=== PATIENT | female | born 1980 | race Hispanic/Latino ===

== ENCOUNTER 2022-09-24 18:42 | Emergency (ER) | payer SELFPAY ==
--- OUTSIDE RECORDS SUMMARY | 2022-09-24 18:49 | XMS REPORT | Continuity of Care Document ---
:1980 Author Organization [facility] t Address [address] [place] [address] Care Team Providers Name Role Phone MANISHA BIANCHI Primary Care Physician Unavailable TINA FABIAN Attending Clinician Unavailable Tina Fabian MD Attending Clinician Doctor Unassigned, [place] Attending Clinician Unavailable Se Ivory DO Attending Clinician Bridgette Roque Attending Clinician Unavailable Yifan Richard MD Attending Clinician GREGG MONTALVO Attending Clinician Unavailable Elio Singh MD Attending Clinician TINA FABIAN Admitting Clinician Unavailable Payers Payer Name Policy Type Policy Number Effective Date Expiration Date S [facility] [id number] 2020 00:00:00 Problems Condition Condition Condition Status Onset Resolution Last Treating Co mments Source Name Details Category Date Date Treatment Clinician Date Obesity Obesity Disease Active 2018-0 Univers (BMI (BMI 5-21 ity of 30-39.9) 30-39.9) 00:00: [address] Branch Subclinica Subclinica Disease Active 2017- U nivers l l 8-02 ity of hypothyroi hypothyroi [place] [facility] Primary Primary Disease Active [facility] hypothyroi hypothyroi 3-29 it y of dism dism 00:00: [address] Primary Primary Disease Active Univers hypothyroi hypothyroi 3-29 it y of dism dism 00:00: [place] 00 Medical Branch Low IGF-1 Low IGF-1 Disease Active Uni vers level level 3-29 ity of 00:00: [place] [facility] Low IGF-1 Low IGF-1 Disease Active Uni vers level level 3-29 ity of 00:00: [place] 00 Medical Branch Elevated Elevated Disease Active Unive rs blood blood 3-22 ity of pressure pressure 00:00: [place] reading reading 00 Medical without without Branch diagnosis diagnosis of of hypertensi hypertensi on on Depo-Prove Depo-Prove Disease Active U nivers ra ra 2-23 [place] of contracept contracept [place] k[place]ore status kishore status 00 [facility] PCOS PCOS Disease Active 2014-08 [facility] (polycysti (polycysti 0-21 [place] y of c ovarian c ovarian 00:[place] syndrome[place] syndrome[place] 00 [facility] PCOS PCOS Disease Active 2014-08 Univers (polycysti (polycysti 0-21 it y of c ovarian c ovarian 00:[place] syndrome[place] syndrome[place] 00 [facility] Elevated Elevated Disease Active Unive rs liver liver 9 ity of enzymes enzymes 00:00: [place] [facility] Abnormal Abnormal Disease Active Unive rs thyroid thyroid 05-27 ity of blood test blood test [place] [facility] HLD HLD Disease Active Univers (hyperlipi (hyperlipi 9 it y of demia) demia) 00:00: [place] [facility] 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 U nivers unspecifie unspecifie 6-23 it y of d type d type 00:00: [place] diabetes diabetes 00 Medica l mellitus mellitus Branch with with ophthalmic ophthalmic manifestat manifestat ions, ions, uncontroll uncontroll ed(250.52) ed(250.52) 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 00:00: [place] 00 Medical Branch Callus of Callus of Disease Active Uni vers foot foot 5-13 ity of 00:00: [place] [facility] Diabetes Diabetes Disease Active Unive rs mellitus mellitus 5-12 ity of due to due to 00:00: [place] underlying underlying 00 Me dical condition condition 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 Neuropathy Neuropathy Disease Active U nivers - ity of 00:00: [place] 00 Medical Branch Amenorrhea Amenorrhea Disease Active U nivers 01-07 ity of 00:00: [place] 00 Medical Branch Hirsutism Hirsutism Disease Active Uni vers 01-07 ity of 00:00: [place] 00 Medical Branch Allergies, Adverse Reactions, Alerts Allergy Allergy Status Severity Reaction(s) Onset Inactive Treating Comm ents Source Name Type Date Date Clinician Penicill Propensi Active Swelling Took pcn, U nivers ins ty to 10-21 broke out ity of adverse 00:00: in hives [place] reaction 00 and felt Medica l s throat Branch closing up PENICILL Drug Active Swelling Univer s INS Class 2- ity of 00:00: [place] 00 Medical Branch Social History Social Habit Start Date Stop Date Quantity Comments Source Exposure to Not sure [facility] SARS-CoV-2 [facility] (event) Branch Alcohol intake 2021-01-16 2021-01-16 Current [facility] 00:00:00 00:00:00 non-drinker of [facility] [place] [facility] alcohol [place] (finding) Tobacco use and 2021-01-16 2021-01-16 Never used Universit y of exposure 00:00:00 00:00:00 [facility] Sex Assigned At [birth year] Universit y of 00:00:00 00:00:00 [facility] Smoking Status Start Date Stop Date Source Never smoker [facility] Medications Ordered Filled Start Stop Current Ordering Indication Dosage Frequency Signature Comments Components Source Medication Medication Date Date Medication? Clinician (SIG) Name Name icosapent Yes Take by Unive rs ethyl - mouth. ity of (VASCEPA) 1 14:12: [place] gram 53 Medical capsule Branch dapaglifloz Yes Take by Uni vers in-metformi - mouth. ity of n (XIGDUO 14:12: [place] XR) 53 Medical 10-1,000 mg Branch TBph dulaglutide Yes inject Univ ers (TRULICITY) 5-21 under the ity of 1.5 mg/0.5 14:12: skin. [place] [id number] Medical Branch Fenofibrate 2020-0 Yes Take by Uni vers 160 mg 5-21 mouth. ity of tablet 14:12: [address] Branch icosapent 0 Yes Take by Unive rs ethyl 5-21 mouth. ity of (VASCEPA) 1 14:12: [place] [address] Medical capsule Branch dapaglifloz 0 Yes Take by Uni vers in-metformi 5-21 mouth. ity of n (XIGDUO 14:12: [place] XR) 53 Medical 10-1,000 mg Branch TBph dulaglutide 2020-0 Yes inject Univ ers (TRULICITY) 5-21 under the ity of 1.5 mg/0.5 14:12: skin. [address] Branch Fenofibrate 0 Yes Take by Uni vers 160 mg 5-21 mouth. ity of tablet 14:12: [address] icosapent Yes Take by Unive rs ethyl 5-21 mouth. ity of (VASCEPA) 1 14:12: [place] [address] Medical capsule Branch dapaglifloz 0 Yes Take by Uni vers in-metformi 5-21 mouth. ity of n (XIGDUO 14:12: [place] XR) 53 Medical 10-1,000 mg Branch TBph dulaglutide 2020-0 Yes inject Univ ers (TRULICITY) 5-21 under the ity of 1.5 mg/0.5 14:12: skin. [address] Branch Fenofibrate 0 Yes Take by Uni vers 160 mg 5-21 mouth. ity of tablet 14:12: [address] Branch metroNIDAZO 2020-0 Yes [id number] 500mg Take 1 Univers LE 500 mg 5-22 tablet by ity o f tablet 00:00: mouth [place] 00 every 12 Medical (twelve) Branch hours. metroNIDAZO 2020-0 Yes [id number] 500mg Take 1 Univers LE 500 mg 5-22 tablet by ity o f tablet 00:00: mouth [place] 00 every 12 Medical (twelve) Branch hours. metroNIDAZO 2020-0 Yes [id number] 500mg Take 1 Univers LE 500 mg 5-22 tablet by ity o f tablet 00:00: mouth [place] 00 every 12 Medical (twelve) Branch hours. metroNIDAZO 2020-0 Yes [id number] 500mg Take 1 Univers LE 500 mg 5-22 tablet by ity o f tablet 00:00: mouth [place] 00 every 12 Medical (twelve) Branch hours. metroNIDAZO 2020-0 Yes [id number] 500mg Take 1 Univers LE 500 mg 5-22 tablet by ity o f tablet 00:00: mouth [place] 00 every 12 Medical (twelve) Branch hours. metroNIDAZO 2020-0 Yes [id number] 500mg Take 1 Univers LE 500 mg 5-22 tablet by ity o f tablet 00:00: mouth [place] 00 every 12 Medical (twelve) Branch hours. metroNIDAZO 2020-0 Yes [id number] 500mg Take 1 Univers LE 500 mg 5-22 tablet by ity o f tablet 00:00: mouth [place] 00 every 12 Medical (twelve) Branch hours. metroNIDAZO 2020-0 Yes [id number] 500mg Take 1 Univers LE 500 mg 5-22 tablet by ity o f tablet 00:00: mouth [place] 00 every 12 Medical (twelve) Branch hours. metroNIDAZO 2020-0 Yes [id number] 500mg Take 1 Univers LE 500 mg 5-22 tablet by ity o f tablet 00:00: mouth [place] 00 every 12 Medical (twelve) Branch hours. metroNIDAZO 2020-0 Yes [id number] 500mg Take 1 Univers LE 500 mg 5-22 tablet by ity o f tablet 00:00: mouth [place] 00 every 12 Medical (twelve) Branch hours. metroNIDAZO 2020-0 2021- No [id number] 500mg Take 1 Univers LE 500 mg 5-22 05-21 tablet by ity of tablet 00:00: 00:00 mouth [place] 00 :00 every 12 Medical (twelve) Branch hours. metroNIDAZO 2020-0 2021- No [id number] 500mg Take 1 Univers LE 500 mg 5-22 05-21 tablet by ity of tablet 00:00: 00:00 mouth [place] 00 :00 every 12 Medical (twelve) Branch hours. fluconazole 2020-0 2020- No [id number] 150mg Take 1 Univers (DIFLUCAN) 5-22 05-23 tablet by ity of 150 mg 00:00: 04:59 [place] tablet 00 :00 now for 1 Medical dose. Branch icosapent 2020-0 Yes Take by Unive rs ethyl 5-21 mouth. ity of (VASCEPA) 1 16:17: [place] gram 36 Medical capsule Branch dapaglifloz 2020-0 Yes Take by Uni vers in-metformi 5-21 mouth. ity of n (XIGDUO 16:17: [place] XR) 36 Medical 10-1,000 mg Branch TBph dulaglutide 2020-0 Yes inject Univ ers (TRULICITY) 5-21 under the ity of 1.5 mg/0.5 16:17: skin. [place] mL PnIj 36 Medical Branch Fenofibrate 2020-0 Yes Take by Uni vers 160 mg 5-21 mouth. ity of tablet 16:17: [place] 36 Medical Branch icosapent 2020-0 Yes Take by Unive rs ethyl 5-21 mouth. ity of (VASCEPA) 1 16:17: [place] gram 36 Medical capsule Branch dapaglifloz 2020-0 Yes Take by Uni vers in-metformi 5-21 mouth. ity of n (XIGDUO 16:17: [place] XR) 36 Medical 10-1,000 mg Branch TBph dulaglutide 2020-0 Yes inject Univ ers (TRULICITY) 5-21 under the ity of 1.5 mg/0.5 16:17: skin. [place] mL PnIj 36 Medical Branch Fenofibrate 2020-0 Yes Take by Uni vers 160 mg 5-21 mouth. ity of tablet 16:17: [place] [address] Medical Branch icosapent 2020-0 Yes Take by Unive rs ethyl 5-21 mouth. ity of (VASCEPA) 1 16:17: [place] gram 36 Medical capsule Branch dapaglifloz 2020-0 Yes Take by Uni vers in-metformi 5-21 mouth. ity of n (XIGDUO 16:17: [place] XR) 36 Medical 10-1,000 mg Branch TBph dulaglutide 2020-0 Yes inject Univ ers (TRULICITY) 5-21 under the ity of 1.5 mg/0.5 16:17: skin. [place] mL PnIj 36 Medical Branch Fenofibrate 2020-0 Yes Take by Uni vers 160 mg 5-21 mouth. ity of tablet 16:17: [place] [address] Medical Branch icosapent 2020-0 Yes Take by Unive rs ethyl 5-21 mouth. ity of (VASCEPA) 1 16:17: [place] gram 36 Medical capsule Branch dapaglifloz 2020-0 Yes Take by Uni vers in-metformi 5-21 mouth. ity of n (XIGDUO 16:17: [place] XR) 36 Medical 10-1,000 mg Branch TBph dulaglutide 2020-0 Yes inject Univ ers (TRULICITY) 5-21 under the ity of 1.5 mg/0.5 16:17: skin. [place] mL PnIj 36 Medical Branch Fenofibrate 2020-0 Yes Take by Uni vers 160 mg 5-21 mouth. ity of tablet 16:17: [place] [facility] icosapent 2020-0 Yes Take by Unive rs ethyl 5-21 mouth. ity of (VASCEPA) 1 16:17: [place] gram 36 Medical capsule Branch dapaglifloz 2020-0 Yes Take by Uni vers in-metformi 5-21 mouth. ity of n (XIGDUO 16:17: [place] XR) 36 Medical 10-1,000 mg Branch TBph dulaglutide 2020-0 Yes inject Univ ers (TRULICITY) 5-21 under the ity of 1.5 mg/0.5 16:17: skin. [place] mL PnIj 36 Medical Branch Fenofibrate 2020-0 Yes Take by Uni vers 160 mg 5-21 mouth. ity of tablet 16:17: [place] [address] Medical Branch icosapent 2020-0 Yes Take by Unive rs ethyl 5-21 mouth. ity of (VASCEPA) 1 16:17: [place] gram 36 Medical capsule Branch dapaglifloz 2020-0 Yes Take by Uni vers in-metformi 5-21 mouth. ity of n (XIGDUO 16:17: [place] XR) 36 Medical 10-1,000 mg Branch TBph dulaglutide 2020-0 Yes inject Univ ers (TRULICITY) 5-21 under the ity of 1.5 mg/0.5 16:17: skin. [place] mL PnIj 36 Medical Branch Fenofibrate 2020-0 Yes Take by Uni vers 160 mg 5-21 mouth. ity of tablet 16:17: [place] [address] Medical Branch icosapent 2020-0 Yes Take by Unive rs ethyl 5-21 mouth. ity of (VASCEPA) 1 16:17: [place] gram 36 Medical capsule Branch dapaglifloz 2020-0 Yes Take by Uni vers in-metformi 5-21 mouth. ity of n (XIGDUO 16:17: [place] XR) 36 Medical 10-1,000 mg Branch TBph dulaglutide 2020-0 Yes inject Univ ers (TRULICITY) 5-21 under the ity of 1.5 mg/0.5 16:17: skin. [place] mL PnIj 36 Medical Branch Fenofibrate 2020-0 Yes Take by Uni vers 160 mg 5-21 mouth. ity of tablet 16:17: [place] 36 Medical Branch icosapent 2020-0 Yes Take by Unive rs ethyl 5-21 mouth. ity of (VASCEPA) 1 16:17: [place] gram 36 Medical capsule Branch dapaglifloz 2020-0 Yes Take by Uni vers in-metformi 5-21 mouth. ity of n (XIGDUO 16:17: [place] XR) 36 Medical 10-1,000 mg Branch TBph dulaglutide 2020-0 Yes inject Univ ers (TRULICITY) 5-21 under the ity of 1.5 mg/0.5 16:17: skin. [place] PnIj 36 Medical Branch Fenofibrate 2020-0 Yes Take by Uni vers 160 mg 5-21 mouth. ity of tablet 16:17: [place] 36 Medical Branch icosapent 2020-0 Yes Take by Unive rs ethyl 5-21 mouth. ity of (VASCEPA) 1 16:17: [place] gram 36 Medical capsule Branch dapaglifloz 2020-0 Yes Take by Uni vers in-metformi 5-21 mouth. ity of n (XIGDUO 16:17: [place] XR) 36 Medical 10-1,000 mg Branch TBph dulaglutide 2020-0 Yes inject Univ ers (TRULICITY) 5-21 under the ity of 1.5 mg/0.5 16:17: skin. [place] mL PnIj 36 Medical Branch Fenofibrate 2020-0 Yes Take by Uni vers 160 mg 5-21 mouth. ity of tablet 16:17: [place] 36 Medical Branch icosapent 2020-0 Yes Take by Unive rs ethyl 5-21 mouth. ity of (VASCEPA) 1 16:17: [place] gram 36 Medical capsule Branch dapaglifloz 2020-0 Yes Take by Uni vers in-metformi 5-21 mouth. ity of n (XIGDUO 16:17: [place] XR) 36 Medical 10-1,000 mg Branch TBph dulaglutide 2020-0 Yes inject Univ ers (TRULICITY) 5-21 under the ity of 1.5 mg/0.5 16:17: skin. [place] mL PnIj 36 Medical Branch Fenofibrate 2020-0 Yes Take by Uni vers 160 mg 5-21 mouth. ity of tablet 16:17: [place] [address] Medical Branch icosapent 2020-0 Yes Take by Unive rs ethyl 5-21 mouth. ity of (VASCEPA) 1 16:17: [place] gram 36 Medical capsule Branch dapaglifloz 2020-0 Yes Take by Uni vers in-metformi 5-21 mouth. ity of n (XIGDUO 16:17: [place] XR) 36 Medical 10-1,000 mg Branch TBph dulaglutide 2020-0 Yes inject Univ ers (TRULICITY) 5-21 under the ity of 1.5 mg/0.5 16:17: skin. [facility] PnIj 36 Medical Branch Fenofibrate 2020-0 Yes Take by Uni vers 160 mg 5-21 mouth. ity of tablet 16:17: [place] [address] Medical Branch icosapent 2020-0 Yes Take by Unive rs ethyl 5-21 mouth. ity of (VASCEPA) 1 16:17: [place] gram 36 Medical capsule Branch dapaglifloz 2020-0 Yes Take by Uni vers in-metformi 5-21 mouth. ity of n (XIGDUO 16:17: [place] XR) 36 Medical 10-1,000 mg Branch TBph dulaglutide 2020-0 Yes inject Univ ers (TRULICITY) 5-21 under the ity of 1.5 mg/0.5 16:17: skin. [facility] PnIj 36 Medical Branch Fenofibrate 2020-0 Yes Take by Uni vers 160 mg 5-21 mouth. ity of tablet 16:17: [place] [address] Medical Branch icosapent 2020-0 Yes Take by Unive rs ethyl 5-21 mouth. ity of (VASCEPA) 1 16:17: [place] gram 36 Medical capsule Branch dapaglifloz 2020-0 Yes Take by Uni vers in-metformi 5-21 mouth. ity of n (XIGDUO 16:17: [place] XR) 36 Medical 10-1,000 mg Branch TBph dulaglutide 2020-0 Yes inject Univ ers (TRULICITY) 5-21 under the ity of 1.5 mg/0.5 16:17: skin. [facility] PnIj 36 Medical Branch Fenofibrate 2020-0 Yes Take by Uni vers 160 mg 5-21 mouth. ity of tablet 16:17: [place] 36 Medical Branch atorvastati 2020-0 Yes 20mg Take 1 Univ ers n 20 mg 3-23 tablet by ity of tablet 00:00: mouth at [place] [address] bedtime. Medical Branch atorvastati 2020-0 Yes 20mg Take 1 Univ ers n 20 mg 3-23 tablet by ity of tablet 00:00: mouth at [place] [address] bedtime. Medical Branch atorvastati 2020-0 Yes 20mg Take 1 Univ ers n 20 mg 3-23 tablet by ity of tablet 00:00: mouth at [place] [address] bedtime. Medical Branch atorvastati 2020-0 Yes 20mg Take 1 Univ ers n 20 mg 3-23 tablet by ity of tablet 00:00: mouth at [place] [address] bedtime. Medical Branch atorvastati 2020-0 Yes 20mg Take 1 Univ ers n 20 mg 3-23 tablet by ity of tablet 00:00: mouth at [place] [address] bedtime. Medical Branch atorvastati 2020-0 Yes 20mg Take 1 Univ ers n 20 mg 3-23 tablet by ity of tablet 00:00: mouth at [place] [address] bedtime. Medical Branch atorvastati 2020-0 Yes 20mg Take 1 Univ ers n 20 mg 3-23 tablet by ity of tablet 00:00: mouth at [place] [address] bedtime. Medical Branch atorvastati 2020-0 Yes 20mg Take 1 Univ ers n 20 mg 3-23 tablet by ity of tablet 00:00: mouth at [place] [address] bedtime. Medical Branch atorvastati 2020-0 Yes 20mg Take 1 Univ ers n 20 mg 3-23 tablet by ity of tablet 00:00: mouth at [place] [address] bedtime. Medical Branch atorvastati 2020-0 Yes 20mg Take 1 Univ ers n 20 mg 3-23 tablet by ity of tablet 00:00: mouth at [place] [address] bedtime. Medical Branch atorvastati 2020-0 Yes 20mg Take 1 Univ ers n 20 mg 3-23 tablet by ity of tablet 00:00: mouth at [place] [address] bedtime. Medical Branch atorvastati 2020-0 Yes 20mg Take 1 Univ ers n 20 mg 3-23 tablet by ity of tablet 00:00: mouth at [place] [address] bedtime. Medical Branch atorvastati 2020-0 Yes 20mg Take 1 Univ ers n 20 mg 3-23 tablet by ity of tablet 00:00: mouth at [place] [address] bedtime. Medical Branch atorvastati 2020-0 Yes 20mg Take 1 Univ ers n 20 mg 3-23 tablet by ity of tablet 00:00: mouth at [place] [address] bedtime. Medical Branch atorvastati 2020-0 Yes 20mg Take 1 Univ ers n 20 mg 3-23 tablet by ity of tablet 00:00: mouth at [place] [address] bedtime. Medical Branch atorvastati 2020-0 Yes 20mg Take 1 Univ ers n 20 mg 3-23 tablet by ity of tablet 00:00: mouth at [place] [address] bedtime. Medical Branch atorvastati 2020-0 Yes 20mg Take 1 Univ ers n 20 mg 3-23 tablet by ity of tablet 00:00: mouth at [place] [address] bedtime. Medical Branch atorvastati 2020-0 Yes 20mg Take 1 Univ ers n 20 mg 3-23 tablet by ity of tablet 00:00: mouth at [place] [address] bedtime. Medical Branch atorvastati 2020-0 Yes 20mg Take 1 Univ ers n 20 mg 3-23 tablet by ity of tablet 00:00: mouth at [place] [address] bedtime. Medical Branch atorvastati 2020-0 Yes 20mg Take 1 Univ ers n 20 mg 3-23 tablet by ity of tablet 00:00: mouth at [place] [address] bedtime. Medical Branch atorvastati 2019-0 Yes 20mg Take 1 Univ ers n 20 mg 7-11 tablet by ity of tablet 00:00: mouth at [place] [address] bedtime. Medical Branch atorvastati 2019-0 Yes 20mg Take 1 Univ ers n 20 mg 7-11 tablet by ity of tablet 00:00: mouth at [place] [address] bedtime. Medical Branch atorvastati 2019-0 Yes 20mg Take 1 Univ ers n 20 mg 7-11 tablet by ity of tablet 00:00: mouth at [place] [address] bedtime. Medical Branch atorvastati 2019-0 Yes 20mg Take 1 Univ ers n 20 mg 7-11 tablet by ity of tablet 00:00: mouth at [place] [address] bedtime. Medical Branch atorvastati 2019-0 Yes 20mg Take 1 Univ ers n 20 mg 7-11 tablet by ity of tablet 00:00: mouth at [place] 00 [facility]. [facility] No [facility] Take 1 Uni vers n 20 mg 03-08 tablet by ity of tablet 00:00: 00:00 mouth at [place] 00 :00 [facility]. [facility]- No 20mg Take 1 Uni vers n 20 mg 03-08 tablet by ity of tablet 00:00: 00:00 mouth at [place] 00 :00 [facility]time. [facility]- No 20mg Take 1 Uni vers n 20 mg 03-08 tablet by ity of tablet 00:00: 00:00 mouth at [place] 00 :00 bedtime. [facility] 0 Yes [id number] Use as Un telma VERIO strip 6-17 directed, ity of 00:00: TID, DX: [place] E11.9 [facility] 0 Yes [id number] Use as Un telma VERIO strip 6-17 directed, ity of 00:00: TID, DX: [place] E11.9 [facility] 0 Yes [id number] Use as Un telma VERIO strip 6-17 directed, ity of 00:00: TID, DX: [place] E11.9 [facility] 0 Yes [id number] Use as Un telma VERIO strip 6-17 directed, ity of 00:00: TID, DX: [place] E11.9 [facility] 0 Yes [id number] Use as Un telma VERIO strip 6-17 directed, ity of 00:00: TID, DX: [place] E11.9 [facility] 0 Yes [id number] Use as Un telma VERIO strip 6-17 directed, ity of 00:00: TID, DX: [place] E11.9 [facility] 0 Yes [id number] Use as Un telma VERIO strip 6-17 directed, ity of 00:00: TID, DX: [place] E11.9 [facility] 0 Yes [id number] Use as Un telma VERIO strip 6-17 directed, ity of 00:00: TID, DX: [place] 00 E11.9 [facility] 0 Yes [id number] Use as Un telma VERIO strip 6-17 directed, ity of 00:00: TID, DX: [place] E11.9 Medical [facility] 0 Yes [id number] Use as Un telma VERIO strip 6-17 directed, ity of 00:00: TID, DX: [place] E11.9 Medical [facility] 0 Yes [id number] Use as Un telma VERIO strip 6-17 directed, ity of 00:00: TID, DX: [place] E11.9 Medical [facility] Yes [id number] Use as Un telma VERIO strip 6-17 directed, ity of 00:00: TID, DX: [place] E11.9 Medical [facility] Yes [id number] Use as Un telma VERIO strip 6-17 directed, ity of 00:00: TID, DX: [place] E11.9 Medical Branch [facility] Yes [id number] Use as Un telma VERIO strip 6-17 directed, ity of 00:00: TID, DX: [place] E11.9 Medical [facility] Yes [id number] Use as Un telma VERIO strip 6-17 directed, ity of 00:00: TID, DX: [place] E11.9 [facility] Yes [id number] Use as Un telma VERIO strip 6-17 directed, ity of 00:00: TID, DX: [place] E11.9 Medical [facility] Yes [id number] Use as Un telma VERIO strip 6-17 directed, ity of 00:00: TID, DX: [place] E11.9 Medical [facility] 0 Yes [id number] Use as Un telma VERIO strip 6-17 directed, ity of 00:00: TID, DX: [place] E11.9 Medical [facility] 0 Yes [id number] Use as Un telma VERIO strip 6-17 directed, ity of 00:00: TID, DX: [place] E11.9 Medical [facility] 0 Yes [id number] Use as Un telma VERIO strip 6-17 directed, ity of 00:00: TID, DX: [place] E11.9 Medical Branch [facility] Yes [id number] Use as Un telma VERIO strip 6-17 directed, ity of 00:00: TID, DX: [place] E11.9 Medical Branch [facility] Yes [id number] Use as Un telma VERIO strip 6-17 directed, ity of 00:00: TID, DX: [place] E11.9 Medical Branch [facility] Yes [id number] Use as Un telma VERIO strip 6-17 directed, ity of 00:00: TID, DX: [place] E11.9 Medical Branch [facility] Yes [id number] Use as Un telma VERIO strip 6-17 directed, ity of 00:00: TID, DX: [place] E11.9 Medical Branch [facility] Yes [id number] Use as Un telma VERIO strip 6-17 directed, ity of 00:00: TID, DX: [place] E11.9 Medical Branch insulin Yes [id number] 15U inject 15 Univers lispro 6-14 Units ity of protamine-i 00:00: under the [place] nsulin 00 skin 2 Medical lispro (two) Branch (HUMALOG times MIX 50-50 daily KWIKPEN) before 100 unit/mL breakfast (50-50) and injection dinner. Insulin Yes [id number] Use twice [facility] [employer], 6-14 daily ity of Disposable, 00:00: [place] (JAK PEN 00 Medical NEEDLE) 32 Branch gauge x 5/32" Ndle insulin Yes [id number] 15U inject 15 Univers lispro 6-14 Units ity of protamine-i 00:00: under the [place] nsulin 00 skin 2 Medical lispro (two) Branch (HUMALOG times MIX 50-50 daily KWIKPEN) before 100 unit/mL breakfast (50-50) and injection dinner. Insulin Yes [id number] Use twice Univers [employer], 6-14 daily ity of Disposable, 00:00: [place] (JAK PEN 00 Medical NEEDLE) 32 Branch gauge x 5/32" Ndle insulin Yes [id number] 15U inject 15 Univers lispro 6-14 Units ity of protamine-i 00:00: under the [place] nsulin 00 skin 2 Medical lispro (two) Branch (HUMALOG times MIX 50-50 daily KWIKPEN) before 100 unit/mL breakfast (50-50) and injection dinner. Insulin Yes [id number] Use twice [facility] [employer], 6-14 daily ity of Disposable, 00:00: [place] (JAK PEN 00 Medical NEEDLE) 32 Branch gauge x 5/32" Ndle insulin Yes [id number] 15U inject 15 Univers lispro 6-14 Units ity of protamine-i 00:00: under the [place] nsulin skin 2 Medical lispro (two) Branch (HUMALOG times MIX 50-50 daily KWIKPEN) before 100 unit/mL breakfast (50-50) and injection dinner. Insulin Yes [id number] Use twice [facility] [employer], 6-14 daily ity of Disposable, 00:00: [place] (JAK PEN 00 Medical NEEDLE) 32 Branch gauge x 5/32" Ndle insulin Yes [id number] 15U inject 15 [facility] lispro 6-14 Units ity of protamine-i 00:00: under the [place] nsulin skin 2 Medical lispro (two) Branch (HUMALOG times MIX 50-50 daily KWIKPEN) before 100 unit/mL breakfast (50-50) and injection dinner. Insulin Yes [id number] Use twice Univers [employer], 6-14 daily ity of Disposable, 00:00: [place] (JAK PEN 00 Medical NEEDLE) 32 Branch gauge x 5/32" Ndle insulin Yes [id number] 15U inject 15 Univers lispro 6-14 Units ity of protamine-i 00:00: [place] nsulin skin 2 Medical lispro (two) Branch (HUMALOG times MIX 50-50 daily KWIKPEN) before 100 unit/mL breakfast (50-50) and injection dinner. Insulin Yes [id number] Use twice [facility] [employer], 6-14 daily ity of Disposable, 00:00: [place] (JAK PEN 00 Medical NEEDLE) 32 Branch gauge x 5/32" Ndle insulin Yes [id number] 15U inject 15 Univers lispro 6-14 Units ity of protamine-i 00:00: [place] nsulin 00 skin 2 Medical lispro (two) Branch (HUMALOG times MIX 50-50 daily KWIKPEN) before 100 unit/mL breakfast (50-50) and injection dinner. Insulin Yes [id number] Use twice [facility] [employer], 6-14 daily ity of Disposable, 00:00: [place] (JAK PEN 00 Medical NEEDLE) 32 Branch gauge x 5/32" Ndle insulin Yes [id number] 15U inject 15 Univers lispro 6-14 Units ity of protamine-i 00:00: [place] nsulin skin 2 Medical lispro (two) Branch (HUMALOG times MIX 50-50 daily KWIKPEN) before 100 unit/mL breakfast (50-50) and injection dinner. Insulin Yes [id number] Use twice [facility] [employer], 6-14 daily ity of Disposable, 00:00: [place] (JAK PEN 00 Medical NEEDLE) 32 Branch gauge x 5/32" Ndle insulin Yes [id number] 15U inject 15 [facility] lispro 6-14 Units ity of protamine-i 00:00: [place] nsulin skin 2 Medical lispro (two) Branch (HUMALOG times MIX 50-50 daily KWIKPEN) before 100 unit/mL breakfast (50-50) and injection dinner. Insulin Yes [id number] Use twice [facility] [employer], 6-14 daily ity of Disposable, 00:00: [place] (JAK PEN 00 Medical NEEDLE) 32 Branch gauge x 5/32" Ndle insulin Yes [id number] 15U inject 15 [facility] lispro 6-14 Units ity of protamine-i 00:00: [place] nsulin skin 2 Medical lispro (two) Branch (HUMALOG times MIX 50-50 daily KWIKPEN) before 100 unit/mL breakfast (50-50) and injection dinner. Insulin Yes [id number] Use twice [facility] [employer], 6-14 daily ity of Disposable, 00:00: [place] (JAK PEN 00 Medical NEEDLE) 32 Branch gauge x 5/32" Ndle insulin Yes [id number] 15U inject 15 [facility] lispro 6-14 Units ity of protamine-i 00:00: [place] nsulin 00 skin 2 Medical lispro (two) Branch (HUMALOG times MIX 50-50 daily KWIKPEN) before 100 unit/mL breakfast (50-50) and injection dinner. Insulin Yes [id number] Use twice [facility] [employer], 6-14 daily ity of Disposable, 00:00: [place] (JAK PEN 00 Medical NEEDLE) 32 Branch gauge x 5/32" Ndle insulin 20190 Yes [id number] 15U inject 15 [facility] lispro 6-14 Units ity of protamine-i 00:00: [place] nsulin 00 skin 2 Medical lispro (two) Branch (HUMALOG times MIX 50-50 daily KWIKPEN) before 100 unit/mL breakfast (50-50) and injection dinner. Insulin Yes [id number] Use twice [facility] [employer], 6-14 daily ity of Disposable, 00:00: [place] (JAK PEN 00 Medical NEEDLE) 32 Branch gauge x 5/32" Ndle insulin Yes [id number] 15U inject 15 [facility] lispro 6-14 Units ity of protamine-i 00:00: [place] the [place] nsulin 00 skin 2 Medical lispro (two) Branch (HUMALOG times MIX 50-50 daily KWIKPEN) before 100 unit/mL breakfast (50-50) and injection dinner. Insulin Yes [id number] Use twice [facility] [employer], 6-14 daily ity of Disposable, 00:00: [place] (JAK PEN 00 Medical NEEDLE) 32 Branch gauge x 5/32" Ndle insulin 0 Yes [id number] 15U inject 15 [facility] lispro 6-14 Units ity of protamine-i 00:00: [place] nsulin 00 skin 2 Medical lispro (two) Branch (HUMALOG times MIX 50-50 daily KWIKPEN) before 100 unit/mL breakfast (50-50) and injection dinner. Insulin Yes [id number] Use twice [facility] [employer], 6-14 daily ity of Disposable, 00:00: [place] (JAK PEN 00 Medical NEEDLE) 32 Branch gauge x 5/32" Ndle insulin 0 Yes [id number] 15U inject 15 [facility] lispro 6-14 Units ity of protamine-i 00:00: [place] the [place] nsulin 00 skin 2 Medical lispro (two) Branch (HUMALOG times MIX 50-50 daily KWIKPEN) before 100 unit/mL breakfast (50-50) and injection dinner. Insulin Yes [id number] Use twice [facility] [employer], 6-14 daily ity of Disposable, 00:00: [place] (JAK PEN 00 Medical NEEDLE) 32 Branch gauge x 5/32" Ndle insulin Yes [id number] 15U inject 15 [facility] lispro 6-14 Units ity of protamine-i 00:00: [place] nsulin 00 skin 2 Medical lispro (two) Branch (HUMALOG times MIX 50-50 daily KWIKPEN) before 100 unit/mL breakfast (50-50) and injection dinner. Insulin Yes [id number] Use twice [facility] [employer], 6-14 daily ity of Disposable, 00:00: [place] (JAK PEN 00 Medical NEEDLE) 32 Branch gauge x 5/32" Ndle insulin Yes [id number] 15U inject 15 [facility] lispro 6-14 Units ity of protamine-i 00:00: under [place] nsulin skin 2 Medical lispro (two) Branch (HUMALOG times MIX 50-50 daily KWIKPEN) before 100 unit/mL breakfast (50-50) and injection dinner. Insulin Yes [id number] Use twice [facility] [employer], 6-14 daily ity of Disposable, 00:00: [place] (JAK PEN 00 Medical NEEDLE) 32 Branch gauge x 5/32" Ndle insulin Yes [id number] 15U inject 15 [facility] lispro 6-14 Units ity of protamine-i 00:00: [place] nsulin skin 2 Medical lispro (two) Branch (HUMALOG times MIX 50-50 daily KWIKPEN) before 100 unit/mL breakfast (50-50) and injection dinner. Insulin Yes [id number] Use twice [facility] [employer], 6-14 daily ity of Disposable, 00:00: [place] (JAK PEN 00 Medical NEEDLE) 32 Branch gauge x 5/32" Ndle insulin Yes [id number] 15U inject 15 [facility] lispro 6-14 Units ity of protamine-i 00:00: [place] nsulin 00 skin 2 Medical lispro (two) Branch (HUMALOG times MIX 50-50 daily KWIKPEN) before 100 unit/mL breakfast (50-50) and injection dinner. Insulin Yes [id number] Use twice [facility] [employer], 6-14 daily ity of Disposable, 00:00: [place] (JAK PEN 00 Medical NEEDLE) 32 Branch gauge x 5/32" Ndle insulin Yes [id number] 15U inject 15 [facility] lispro 6-14 Units ity of protamine-i 00:00: under the [place] nsulin 00 skin 2 Medical lispro (two) Branch (HUMALOG times MIX 50-50 daily KWIKPEN) before 100 unit/mL breakfast (50-50) and injection dinner. Insulin Yes [id number] Use twice [facility] [employer], 6-14 daily ity of Disposable, 00:00: [place] (JAK PEN 00 Medical NEEDLE) 32 Branch gauge x 5/32" Ndle insulin Yes [id number] 15U inject 15 [facility] lispro 6-14 Units ity of protamine-i 00:00: under the [place] nsulin 00 skin 2 Medical lispro (two) Branch (HUMALOG times MIX 50-50 daily KWIKPEN) before 100 unit/mL breakfast (50-50) and injection dinner. Insulin Yes [id number] Use twice [facility] [employer], 6-14 daily ity of Disposable, 00:00: [place] (JAK PEN 00 Medical NEEDLE) 32 Branch gauge x 5/32" Ndle insulin Yes [id number] 15U inject 15 [facility] lispro 6-14 Units ity of protamine-i 00:00: under the [place] nsulin 00 skin 2 Medical lispro (two) Branch (HUMALOG times MIX 50-50 daily KWIKPEN) before 100 unit/mL breakfast (50-50) and injection dinner. Insulin Yes [id number] Use twice [facility] [employer], 6-14 daily ity of Disposable, 00:00: [place] (JAK PEN 00 Medical NEEDLE) 32 Branch gauge x 5/32" Ndle insulin Yes [id number] 15U inject 15 [facility] lispro 6-14 Units ity of protamine-i 00:00: [place] the [place] nsulin 00 skin 2 Medical lispro (two) Branch (HUMALOG times MIX 50-50 daily KWIKPEN) before 100 unit/mL breakfast (50-50) and injection dinner. Insulin Yes [id number] Use twice [facility] [employer], 6-14 daily ity of Disposable, 00:00: [place] (JAK PEN 00 Medical NEEDLE) 32 Branch gauge x 5/32" Ndle insulin 2018-0 Yes [id number] 15U inject 15 [facility] lispro 6-14 Units ity of protamine-i 00:00: under the [place] nsulin 00 skin 2 Medical lispro (two) Branch (HUMALOG times MIX 50-50 daily KWIKPEN) before 100 unit/mL breakfast (50-50) and injection dinner. Insulin Yes [id number] Use twice [facility] [employer] [place], 6-14 daily ity of Disposable, 00:00: [place] (JAK PEN 00 Medical NEEDLE) 32 Branch gauge x 5/32" Ndle insulin Yes [id number] 15U inject 15 [facility] lispro 6-14 Units ity of protamine-i 00:00: [place] the [place] nsulin 00 skin 2 Medical lispro (two) Branch (HUMALOG times MIX 50-50 daily KWIKPEN) before 100 unit/mL breakfast (50-50) and injection dinner. Insulin Yes [id number] Use twice [facility] [employer] [place], 6-14 daily ity of Disposable, 00:00: [place] (JAK PEN 00 Medical NEEDLE) 32 Branch gauge x 5/32" Ndle metformin 2017-0 Yes 1000mg Take 2 Univ ers ER 500 mg 4-16 tablets by ity of 24 hr 00:00: mouth 2 [place] tablet 00 (two) Medical times Branch daily. lisinopril 2018-0 Yes 2.5mg Take 1 Univ ers 2.5 mg 4-16 tablet by ity of tablet 00:00: mouth [place] 00 daily. Medical Branch metformin 2018-0 Yes 1000mg Take 2 Univ ers ER 500 mg 4-16 tablets by ity of 24 hr 00:00: mouth 2 [place] tablet 00 (two) Medical times Branch daily. lisinopril 2018-0 Yes 2.5mg Take 1 Univ ers 2.5 mg 4-16 tablet by ity of tablet 00:00: mouth [place] 00 daily. Medical Branch metformin 2018-0 Yes 1000mg Take 2 Univ ers ER 500 mg 4-16 tablets by ity of 24 hr 00:00: mouth 2 [place] tablet 00 (two) Medical times Branch daily. lisinopril 2018-0 Yes 2.5mg Take 1 Univ ers 2.5 mg 4-16 tablet by ity of tablet 00:00: mouth [place] 00 daily. Medical Branch metformin 2018-0 Yes 1000mg Take 2 Univ ers ER 500 mg 4-16 tablets by ity of 24 hr 00:00: mouth 2 [place] tablet 00 (two) Medical times Branch daily. lisinopril 2018-0 Yes 2.5mg Take 1 Univ ers 2.5 mg 4-16 tablet by ity of tablet 00:00: mouth [place] 00 daily. Medical Branch metformin 2018-0 Yes 1000mg Take 2 Univ ers ER 500 mg 4-16 tablets by ity of 24 hr 00:00: mouth 2 [place] tablet 00 (two) Medical times Branch daily. lisinopril 2018-0 Yes 2.5mg Take 1 Univ ers 2.5 mg 4-16 tablet by ity of tablet 00:00: mouth [place] 00 daily. Medical Branch metformin 2018-0 Yes 1000mg Take 2 Univ ers ER 500 mg 4-16 tablets by ity of 24 hr 00:00: mouth 2 [place] tablet 00 (two) Medical times Branch daily. lisinopril 2018-0 Yes 2.5mg Take 1 Univ ers 2.5 mg 4-16 tablet by ity of tablet 00:00: mouth [place] 00 daily. Medical Branch metformin 2018-0 Yes 1000mg Take 2 Univ ers ER 500 mg 4-16 tablets by ity of 24 hr 00:00: mouth 2 [place] tablet 00 (two) Medical times Branch daily. lisinopril 2018-0 Yes 2.5mg Take 1 Univ ers 2.5 mg 4-16 tablet by ity of tablet 00:00: mouth [place] 00 daily. Medical Branch metformin 2018-0 Yes 1000mg Take 2 Univ ers ER 500 mg 4-16 tablets by ity of 24 hr 00:00: mouth 2 [place] tablet 00 (two) Medical times Branch daily. lisinopril 2018-0 Yes 2.5mg Take 1 Univ ers 2.5 mg 4-16 tablet by ity of tablet 00:00: mouth [place] 00 daily. Medical Branch metformin 2018-0 Yes 1000mg Take 2 Univ ers ER 500 mg 4-16 tablets by ity of 24 hr 00:00: mouth 2 [place] tablet 00 (two) Medical times Branch daily. lisinopril 2018-0 Yes 2.5mg Take 1 Univ ers 2.5 mg 4-16 tablet by ity of tablet 00:00: mouth [place] 00 daily. Medical Branch metformin 2018-0 Yes 1000mg Take 2 Univ ers ER 500 mg 4-16 tablets by ity of 24 hr 00:00: mouth 2 [place] tablet 00 (two) Medical times Branch daily. lisinopril 2018-0 Yes 2.5mg Take 1 Univ ers 2.5 mg 4-16 tablet by ity of tablet 00:00: mouth [place] 00 daily. Medical Branch metformin 2018-0 Yes 1000mg Take 2 Univ ers ER 500 mg 4-16 tablets by ity of 24 hr 00:00: mouth 2 [place] tablet 00 (two) Medical times Branch daily. lisinopril 2018-0 Yes 2.5mg Take 1 Univ ers 2.5 mg 4-16 tablet by ity of tablet 00:00: mouth [place] 00 daily. Medical Branch metformin 2018-0 Yes 1000mg Take 2 Univ ers ER 500 mg 4-16 tablets by ity of 24 hr 00:00: mouth 2 [place] tablet 00 (two) Medical times Branch daily. lisinopril 2018-0 Yes 2.5mg Take 1 Univ ers 2.5 mg 4-16 tablet by ity of tablet 00:00: mouth [place] 00 daily. Medical Branch metformin 2018-0 Yes 1000mg Take 2 Univ ers ER 500 mg 4-16 tablets by ity of 24 hr 00:00: mouth 2 [place] tablet 00 (two) Medical times Branch daily. lisinopril 2018-0 Yes 2.5mg Take 1 Univ ers 2.5 mg 4-16 tablet by ity of tablet 00:00: mouth [place] 00 daily. Medical Branch metformin 2018-0 Yes 1000mg Take 2 Univ ers ER 500 mg 4-16 tablets by ity of 24 hr 00:00: mouth 2 [place] tablet 00 (two) Medical times Branch daily. lisinopril 2018-0 Yes 2.5mg Take 1 Univ ers 2.5 mg 4-16 tablet by ity of tablet 00:00: mouth [place] 00 daily. Medical Branch metformin 2018-0 Yes 1000mg Take 2 Univ ers ER 500 mg 4-16 tablets by ity of 24 hr 00:00: mouth 2 [place] tablet 00 (two) Medical times Branch daily. lisinopril 2018-0 Yes 2.5mg Take 1 Univ ers 2.5 mg 4-16 tablet by ity of tablet 00:00: mouth [place] 00 daily. Medical Branch metformin 2018-0 Yes 1000mg Take 2 Univ ers ER 500 mg 4-16 tablets by ity of 24 hr 00:00: mouth 2 [place] tablet 00 (two) Medical times Branch daily. lisinopril 2018-0 Yes 2.5mg Take 1 Univ ers 2.5 mg 4-16 tablet by ity of tablet 00:00: mouth [place] 00 daily. Medical Branch metformin 2018-0 Yes 1000mg Take 2 Univ ers ER 500 mg 4-16 tablets by ity of 24 hr 00:00: mouth 2 [place] tablet 00 (two) Medical times Branch daily. lisinopril 2018-0 Yes 2.5mg Take 1 Univ ers 2.5 mg 4-16 tablet by ity of tablet 00:00: mouth [place] 00 daily. Medical Branch metformin 2018-0 Yes 1000mg Take 2 Univ ers ER 500 mg 4-16 tablets by ity of 24 hr 00:00: mouth 2 [place] tablet 00 (two) Medical times Branch daily. lisinopril 2018-0 Yes 2.5mg Take 1 Univ ers 2.5 mg 4-16 tablet by ity of tablet 00:00: mouth [place] 00 daily. Medical Branch metformin 2018-0 Yes 1000mg Take 2 Univ ers ER 500 mg 4-16 tablets by ity of 24 hr 00:00: mouth 2 [place] tablet 00 (two) Medical times Branch daily. lisinopril 2018-0 Yes 2.5mg Take 1 Univ ers 2.5 mg 4-16 tablet by ity of tablet 00:00: mouth [place] 00 daily. Medical Branch metformin 2018-0 Yes 1000mg Take 2 Univ ers ER 500 mg 4-16 tablets by ity of 24 hr 00:00: mouth 2 [place] tablet 00 (two) Medical times Branch daily. lisinopril 2018-0 Yes 2.5mg Take 1 Univ ers 2.5 mg 4-16 tablet by ity of tablet 00:00: mouth [place] 00 daily. Medical Branch metformin 2018-0 Yes 1000mg Take 2 Univ ers ER 500 mg 4-16 tablets by ity of 24 hr 00:00: mouth 2 [place] tablet 00 (two) Medical times Branch daily. lisinopril 2018-0 Yes 2.5mg Take 1 Univ ers 2.5 mg 4-16 tablet by ity of tablet 00:00: mouth [place] 00 daily. Medical Branch metformin 2018-0 Yes 1000mg Take 2 Univ ers ER 500 mg 4-16 tablets by ity of 24 hr 00:00: mouth 2 [place] tablet 00 (two) Medical times Branch daily. lisinopril 2018-0 Yes 2.5mg Take 1 Univ ers 2.5 mg 4-16 tablet by ity of tablet 00:00: mouth [place] 00 daily. Medical Branch metformin 2018-0 Yes 1000mg Take 2 Univ ers ER 500 mg 4-16 tablets by ity of 24 hr 00:00: mouth 2 [place] tablet 00 (two) Medical times Branch daily. lisinopril 2018-0 Yes 2.5mg Take 1 Univ ers 2.5 mg 4-16 tablet by ity of tablet 00:00: mouth [place] 00 daily. Medical Branch metformin 2018-0 Yes 1000mg Take 2 Univ ers ER 500 mg 4-16 tablets by ity of 24 hr 00:00: mouth 2 [place] tablet 00 (two) Medical times Branch daily. lisinopril 2018-0 Yes 2.5mg Take 1 Univ ers 2.5 mg 4-16 tablet by ity of tablet 00:00: mouth [place] 00 daily. Medical Branch metformin 2018-0 Yes 1000mg Take 2 Univ ers ER 500 mg 4-16 tablets by ity of 24 hr 00:00: mouth 2 [place] tablet 00 (two) Medical times Branch daily. lisinopril 2018-0 Yes 2.5mg Take 1 Univ ers 2.5 mg 4-16 tablet by ity of tablet 00:00: mouth [place] 00 daily. [facility] Branch Immunizations Ordered Filled Immunization Date Status Comments [facility] Immunization Name Name Influenza Virus 2015-05-28 Completed Universit y of Vaccine Quad IM 3+ 00:00:00 [facility] Tdap 2015-05-28 Completed University of 00:00:00 [facility] Influenza Virus 2015-05-28 Completed Universit y of Vaccine Quad IM 3+ 00:00:00 [facility] Tdap 2015-05-28 Completed University of 00:00:00 [facility] Influenza Virus 2015-05-28 Completed Universit y of Vaccine Quad IM 3+ 00:00:00 [facility] Tdap 2015-05-28 Completed University of 00:00:00 [facility] Influenza Virus 2015-05-28 Completed Universit y of Vaccine Quad IM 3+ 00:00:00 [facility] Tdap 2015-05-28 Completed University of 00:00:00 [facility] Influenza Virus 2015-05-28 Completed Universit y of Vaccine Quad IM 3+ 00:00:00 [facility] Tdap 2015-05-28 Completed University of 00:00:00 [facility] Influenza Virus 2015-05-28 Completed Universit y of Vaccine Quad IM 3+ 00:00:00 [facility] Tdap 2015-05-28 Completed University of 00:00:00 [facility] Influenza Virus 2015-05-28 Completed Universit y of Vaccine Quad IM 3+ 00:00:00 [facility] Tdap 2015-05-28 Completed University of 00:00:00 [facility] Influenza Virus 2015-05-28 Completed Universit y of Vaccine Quad IM 3+ 00:00:00 [facility] Tdap 2015-05-28 Completed University of 00:00:00 [facility] Influenza Virus 2015-05-28 Completed Universit y of Vaccine Quad IM 3+ 00:00:00 [facility] Tdap 2015-05-28 Completed University of 00:00:00 [facility] Influenza Virus 2015-05-28 Completed Universit y of Vaccine Quad IM 3+ 00:00:00 [facility] Tdap 2015-05-28 Completed University of 00:00:00 [facility] Influenza Virus 2015-05-28 Completed Universit y of Vaccine Quad IM 3+ 00:00:00 [facility] Tdap 2015-05-28 Completed University of 00:00:00 [facility] Influenza Virus 2015-05-28 Completed Universit y of Vaccine Quad IM 3+ 00:00:00 [facility] TDAP 2015-05-28 Completed University of 00:00:00 [facility] Influenza Virus 2015-05-28 Completed Universit y of Vaccine Quad IM 3+ 00:00:00 [facility] TDAP 2015-05-28 Completed University of 00:00:00 [facility] Influenza Virus 2015-05-28 Completed Universit y of Vaccine Quad IM 3+ 00:00:00 [facility] TDAP 2015-05-28 Completed University of 00:00:00 [facility] Influenza Virus 2015-05-28 Completed Universit y of Vaccine Quad IM 3+ 00:00:00 [facility] TDAP 2015-05-28 Completed University of 00:00:00 [facility] Influenza Virus 2015-05-28 Completed Universit y of Vaccine Quad IM 3+ 00:00:00 [facility] TDAP 2015-05-28 Completed University of 00:00:00 [facility] Influenza Virus 2015-05-28 Completed Universit y of Vaccine Quad IM 3+ 00:00:00 [facility] TDAP 2015-05-28 Completed University of 00:00:00 [facility] Influenza Virus 2015-05-28 Completed Universit y of Vaccine Quad IM 3+ 00:00:00 [facility] TDAP 2015-05-28 Completed University of 00:00:00 [facility] Influenza Virus 2015-05-28 Completed Universit y of Vaccine Quad IM 3+ 00:00:00 [facility] TDAP 2015-05-28 Completed University of 00:00:00 [facility] Influenza Virus 2015-05-28 Completed Universit y of Vaccine Quad IM 3+ 00:00:00 [facility] TDAP 2015-05-28 Completed University of 00:00:00 [facility] Influenza Virus 2015-05-28 Completed Universit y of Vaccine Quad IM 3+ 00:00:00 [facility] Tdap 2015-05-28 Completed University of 00:00:00 [facility] Influenza Virus 2015-05-28 Completed Universit y of Vaccine Quad IM 3+ 00:00:00 [facility] Tdap 2015-05-28 Completed University of 00:00:00 [facility] Influenza Virus 2015-05-28 Completed Universit y of Vaccine Quad IM 3+ 00:00:00 [facility] Tdap 2015-05-28 Completed University of 00:00:00 [facility] Influenza Virus 2015-05-28 Completed Universit y of Vaccine Quad IM 3+ 00:00:00 [facility] Tdap 2015-05-28 Completed University of 00:00:00 [facility] Influenza Virus 2015-05-28 Completed Universit y of Vaccine Quad IM 3+ 00:00:00 [facility] Tdap 2015-05-28 Completed University of 00:00:00 [facility] Vital Signs Vital Name Observation Time Observation Value Comments Source Systolic blood 2021-01-16 14:06:00 126 mm[Hg] Univer sity of pressure [facility] Diastolic blood 2021-01-16 14:06:00 90 mm[Hg] Unive rsity of pressure [facility] Heart rate 2021-01-16 14:06:00 107 /min [facility] [place] [facility] [place] Body temperature 2021-01-16 14:06:00 37.06 Alina Univ [facility] [place] [facility] [place] Respiratory rate 2021-01-16 14:06:00 18 /min [facility] [place] [facility] [place] Body height 2021-01-16 14:06:00 160 cm [facility] [place] [facility] [place] Body weight 2021-01-16 14:06:00 92.534 kg [facility] [place] [facility] BMI 2021-01-16 14:06:00 36.14 kg/m2 [facility] [place] [facility] Systolic blood 2020-01-17 16:05:00 122 mm[Hg] Univer sity of pressure [facility] Diastolic blood 2020-01-17 16:05:00 64 mm[Hg] Unive rsity of pressure [facility] Heart rate 2020-01-17 16:05:00 105 /min [facility] [place] [facility] [place] Body temperature 2020-01-17 16:05:00 36.72 Alina [facility] ersity [facility] Respiratory rate 2020-01-17 16:05:00 18 /min [facility] ersity of [place] [facility] [place] Body height 2020-01-17 16:05:00 160 cm [facility] [place] [facility] [place] Body weight 2020-01-17 16:05:00 92.352 kg [facility] [place] [facility] BMI 2020-01-17 16:05:00 36.07 kg/m2 [facility] [place] [facility] [place] Procedures Procedure Date / Time Performing Clinician Source Performed BI SCREENING 2021-01-21 16:32:00 Tina Fabian [facility] TOMOSYNTHESIS BILATERAL Medical Branch ASSIGNMENT OF BENEFITS 2021-01-16 13:52:18 Doctor Unassigned, No [facility] Name [facility] SCANNED LAB RESULTS 2020-01-29 05:01:00 Doctor Unassigned, No [facility] POCT URINALYSIS W/O 2020-01-17 16:14:00 AdTina medina [facility] SPECIFIC GRAVITY Medical Branch CONSENT TO CONTACT FOR 2020-01-17 15:55:24 Doctor Unassigned, No [facility] VOLUNTARY RESEARCH Name [facility] CONSENT/REFUSAL FOR 2020-01-17 15:55:03 [facility] Unassigned, No [facility] DIAGNOSIS AND TREATMENT Name Medical Branch ASSIGNMENT OF BENEFITS 2020-01-17 15:54:47 Doctor Unassigned, No [facility] Encounters Start End Encounter Admission Attending Care Care Encounter Source Date/Time Date/Time Type Type Clinicians Facility Department ID 2022-01-19 2022-01-19 Outpatient R [facility] [id number] Univers 10:00:00 10:00:00 TINAJAZZY rivera [facility] 2021-01-21 2021-01-21 [facility] [id number] Univers 10:50:10 23:59:00 Encounter Tinajazzy Angel [id number] ity [facility] [id number] [id number] [facility] [address] [place] 2021-01-21 2021-01-21 Outpatient R [facility] [id number] Univers 00:00:00 00:00:00 TINA rivera [facility] 2021-01-16 2021-01-16 Office [facility] [id number] Univers 08:52:37 10:02:57 Visit Tina Angel [id number] ity [facility] [id number] [place] [address] 2021-01-16 2021-01-16 Outpatient R [facility] [id number] Univers 09:00:00 09:00:00 TINA rivera [facility] 2021-01-16 2021-01-16 Orders Doctor VILLAGOMEZ [id number] Univers 00:00:00 00:00:00 Only Unassigned, PEBBLES [id number] ity of [place] [facility] 4.2.7.2.686 Arebn as [phone] [facility] [address] 2020-11-17 2020-11-[address] [facility] [id number] Univers 00:00:00 00:00:00 Outreach Segulshan NARVAEZ [id number] i ty of [facility] [place]2.7.2.[place] [phone] [place] [address] [place] 2020-11-11 2020-11-11 Refill [facility], [facility] 1.2.840.114 [id number] Univers 00:00:00 00:00:00 Tina Reed Stanley [id number] [id number] [phone] [place]ical [place]al 134 [facility] 2020-02-20 2020-02-20 Telephone [facility] [id number] 00:00:00 00:00:00 [facility] [id number] Cancer 4.2.7.2.686 Center - [phone] [place] [address] 2020-02-20 2020-02-20 Telephone Yifan Richard [facility] 1.2.840.114 [id number] 00:00:00 00:00:00 W SPECIALTY [id number] [place] 4.2.7.2.686 [place] [phone] [facility] 2020-02-20 2020-02-20 Telephone [facility] [id number] Univers 00:00:00 00:00:00 [facility] [id number] ity of [id number] - [phone] [facility] [address] 2020-02-20 2020-02-20 Telephone Yifan Richard [facility] 1.2.840.114 [id number] Univers 00:00:00 00:00:00 W SPECIALTY [id number] [place] [phone] [facility] [address] 2020-02-08 2020-02-08 Telephone [facility], [facility] [id number] 00:00:00 00:00:00 Tina L Stanley [id number] [place] 4.2.7.2.686 Professio [phone] [address] 2020-02-08 2020-02-08 Telephone [facility], [facility] [id number] Univers 00:00:00 00:00:00 Tina Angel [id number] ity of [place] 4.2.7.2.686 [facility] [phone] [place] dical [facility] 134 [facility] 2020-01-29 2020-01-29 Office [facility] 1.2.840.114 [id number] 10:51:08 11:51:08 Visit [facility] [id number] Cancer 4.2.7.2.686 Center - [phone] [place] [address] 2020-01-29 2020-01-29 Office Jude [facility] 1.2.840. 114 [id number] Univers 10:51:08 11:51:08 Visit Yifan Richard [facility] [id number] ity of Cancer 4.2.7.2.686 [facility] [phone] [facility] [address] 2020-01-29 2020-01-[address] [facility] [id number] Univers 11:00:00 11:00:00 ity of [facility] 2020-01-29 2020-01-29 Orders Doctor VILLAGOMEZ 1.2.840.114 [id number] 00:00:00 00:00:00 Only Unassigned, PEBBLES 350.1.13.10 [place] [facility] [phone] 009 2020-01-29 2020-01-29 Orders Doctor HERNANDO 1.2.840.114 [id number] Univers 00:00:00 00:00:00 Only Unassigned, PEBBLES 350.1.13.10 ity of [place] [facility] 4.2.7.2.686 Arben [phone] [address] 2020-01-18 2020-01-18 Outpatient R [facility] [id number] Univers 08:57:43 23:59:00 TINA ity [facility] 2020-01-18 2020-01-18 [facility] 1.2.840.114 [id number] Univers 08:57:00 23:59:00 Encounter Tina Angel [id number] [place].2.686 [place] [phone] [facility] [address] 2020-01-18 2020-01-18 Case Ad, [facility] 1.2.840.114 [id number] Univers 00:00:00 00:00:00 Management Tina Angel [id number] [place]2.[place] [phone] [facility] 134 [facility] 2020-01-17 2020-01-17 Office [facility] 1.2.840.114 [id number] Univers 10:56:57 11:59:47 Visit Tina Angle 350.1.13.10 [place]2.[place].2.[place] [phone] [facility] 134 [facility] 2020-01-17 2020-01-[address] [facility] [id number] Univers 09:00:00 09:00:00 GREGG ity of [facility] 2020-01-17 2020-01-17 Orders Doctor HERNANDO 1.2.840.114 [id number] Univers 00:00:00 00:00:00 Only Unassigned, PEBBLES 350.1.13.10 ity of [place] [facility] 4.2.7.2.686 Arben as [phone] [facility] [address] 2019-11-15 2019-11-[address] [facility] 1.2.840.114 [id number] Univers 00:00:00 00:00:00 Elio Angel 350.1.13.10 i [place] [phone] [facility] 220 [facility] 2019-11-14 2019-11-[address] [facility] [id number] Univers 00:00:00 00:00:00 Elio Angel 350.1.13.10 i [place].2.[place] [phone] [facility] 220 [facility] 2019-04-17 2019-04-[address] [facility] [id number] Univers 00:00:00 00:00:00 Elio H MULTISPEC 350.1.13.10 ity of [place]2.7.2.[place] CENTER [phone] [facility] AND GONZALEZ [address] [place] [facility] 2019-04-17 2019-04-17 [facility] [id number] Univers 00:00:00 00:00:00 Elio H Matthews 350.1.13.10 i [place]2.7.2.[place] [phone] [place] dicok nal [address] [place] [address] 2019-04-13 2019-04-13 [facility] [id number] Univers 00:00:00 00:00:00 Elio H Matthews 350.1.13.10 i [place]2.7.2.[place] [phone] [address] 2019-04-10 2019-04-10 [facility] [id number] Univers 00:00:00 00:00:00 Elio H Matthews 350.1.13.10 i [place].2.[place] [phone] [address] Results Test Description Test Time Test Comments Results Result [facility] e Comments BI SCREENING 2020-12-28 Examination:BI Universi ty of TOMOSYNTHESIS 6 SCREENING [place] [facility] BILATERAL 16:47:33 TOMOSYNTHESIS [place] BILATERAL History:Patient is 40 year old and is seen for: ?Fhx of breast cancer.. Computer-aided detection (CAD) utilized. Comparisons: 01/18/2020 BI SCREENING MAMMOGRAM BILATERAL Findings:The breasts are almost entirely fatty. RightThere is a 5.2 mm intramammary lymph node seen in the central region of the right breast in the middle depth, 5.3 cm from the nipple on the CC view. There is no evidence of suspicious masses, calcifications, or other abnormal findings in the right breast. LeftThere is no evidence of suspicious masses, calcifications, or other abnormal findings in the left breast. Impression: No signs of malignancy. Recommendation:Hayley ual mammographic follow-up - LeftAnnual mammographic follow-up - Right BI-RADS Category: Left 1 - NegativeRight 2 - Benign POCT URINALYSIS W/O SPECIFIC GRAVITY 2020-01-17 16:14:00 Test Item Value Reference Range Interpretation Comme nts POCT PH U (test code = 3254) 5 mg/dl 5-8 POCT U LEUK EST (test code = 3263) trace Negative - Negative POCT U NIT (test code = 3262) neg Negative - Negative POCT U PROT (test code = 3259) trace Negative - Negative POCT U GLU (test code = 3256) 3+ Negative - Negative POCT U KETONE (test code = 3258) neg Negative - Negative POCT U BLD (test code = 3257) neg Negative - Negative [facility]/O SPECIFIC [id number] 16:14:00 Test Item Value Reference Range Interpretation Comments POCT PH U (test code = 3254) 5 mg/dl 5-8 POCT U LEUK EST (test code = trace Negative - Negative 3263) POCT U NIT (test code = 3262) neg Negative - Negative POCT U PROT (test code = 3259) trace Negative - Negative POCT U GLU (test code = 3256) 3+ Negative - Negative POCT U KETONE (test code = 3258) neg Negative - Negative POCT U BLD (test code = 3257) neg Negative - Negative [facility] FOR [facility]OLUNTARY RESEARCH 2020-01-17 15:55:24 Test Item Value Reference Range Interpretation Comments Consent To Contact For Voluntary Yes Research (test code = 4947) [facility]
[2022-09-24 19:03] LABS: Urine Blood 3+ (Negative); Urine Glucose 3+ (Negative); Urine Protein 3+ (Negative); Urine pH 5.5 (5.0-7.0)
[2022-09-24 19:19] LABS: Urine Bacteria None Seen /HPF (<20); Urine Crystals Unidentified Few /HPF (None Seen); Urine Mucus Slight /HPF (None Seen); Urine RBC >50 /HPF (None Seen)
[2022-09-24] MEDS ORDERED: ONDANSETRON 4 MG/2 ML VIAL ONE (19:48)
[2022-09-24] MEDS ORDERED: NA CHLORIDE 0.9% 1,000 ML ONE (19:48)
[2022-09-24] MEDS ORDERED: KETOROLAC 30 MG/ML INJ ONE (19:48)
[2022-09-24 20:11] LABS: Absolute Lymphocytes (CBC) 1.6 K/uL (0.7-4.9); Lymphocytes % 12.2 % (15.3-44.8); MCV 87.7 fL (80-100); MPV 8.9 fL (7.6-11.3); RBC Red Blood Cell Count 4.78 M/uL (3.86-4.86)
[2022-09-24 20:15] LABS: Potassium 3.7 mmol/L (3.5-5.1)
[2022-09-24 20:16] LABS: Albumin 3.8 g/dL (3.4-5.0); Bilirubin Total 0.8 mg/dL (0.2-1.0); Protein, Total 8.3 g/dL (6.4-8.2)
--- NOTE | 2022-09-24 21:03 | RAD REPORT ---
EXAM DESCRIPTION: CTAbdomen Pelvis W Contrast - 09/24/2022 8:44 pm CLINICAL HISTORY: lower abd pain, flank pain COMPARISON: CT ABD PELVIS W CONTRAST dated 04/10/2008 TECHNIQUE: CT of the abdomen and pelvis was performed with IV contrast. All CT scans are performed using dose optimization technique as appropriate and may include automated exposure control or mA/KV adjustment according to patient size. FINDINGS: Lower chest: Mild circumferential thickened distal esophagus Liver: Hepatic steatosis. Biliary: No biliary ductal dilatation. Stomach: No significant focal abnormality. Duodenum: No significant focal abnormality. Pancreas: No significant abnormality. Spleen: No significant abnormality. Adrenal: No suspicious lesions. Kidney/ureter: No hydronephrosis. No renal calculi. Bilateral urothelial thickening and mild periuret refugio stranding. Retroperitoneum: No retroperitoneal adenopathy. Vascular: No aneurysm. Bowel: No significant focal abnormality. Normal appendix. Peritoneum: No ascites or free air. Bladder: Mild circumferential bladder wall thickening and hyperenhancement. Reproductive: No adnexal masses. Bones: No acute fracture. Other: n/a IMPRESSION: Periureteric stranding, urothelial enhancement, and bladder wall thickening/enhancement concerning for cystitis and ascending urinary tract infection. No evidence of pyelonephritis or hydro nephrosis. Normal appendix .
[2022-09-24] MEDS ORDERED: CEFTRIAXONE 1000 MG/VIAL ONE (21:24)
[2022-09-24] MEDS ORDERED: NA CHLORIDE 0.9% 100 ML ONE (21:24)
--- NOTE | 2022-09-24 23:11 | ER ---
Nurse's Notes [facility] Name: Clarissa Marie Age: 41 yrs Sex: Female : 1980 Arrival Date: 09/24/2022 Time: 18:46 Bed 12 Private MD: Diagnosis: Acute cystitis with hematuria Presentation: 09/24 18:49 Chief complaint: N/V/D, lower abdominal pain, and blood in urine x 2 days, pain with hb urination today. Coronavirus screen: Client presents with at least one sign or symptom that may indicate coronavirus-19. Provider contacted for isolation considerations. Ebola Screen: No symptoms or risks identified at this time. Initial Sepsis Screen: Does the patient meet any 2 criteria? No. Patient's initial sepsis screen is negative. Does the patient have a suspected source of infection? No. Patient's initial sepsis screen is negative. Risk Assessment: Do you want to hurt yourself or someone else? Patient reports no desire to harm self or others. Onset of symptoms was September 23, 2022. 18:49 Method Of Arrival: Ambulatory hb 18:49 Acuity: JT 3 hb Historical: - Allergies: 18:51 PENICILLINS (Anaphylaxis); hb - PMHx: 18:51 Diabetes - IDDM; High Cholesterol; Hypothyroidism; hb - Immunization history:: Adult Immunizations up to date. - Social history:: Smoking status: Patient denies any tobacco usage or history of. Screenin:27 [facility] ED Fall Risk Assessment (Adult) History of falling in the last 3 months, aa9 including since admission No falls in past 3 months (0 pts) Confusion or Disorientation No (0 pts) Intoxicated or Sedated No (0 pts) Impaired Gait No (0 pts) Mobility Assist Device Used No (0 pt) Altered Elimination No (0 pt) Score/Fall Risk Level 0 - 2 = Low Risk. Abuse screen: Denies threats or abuse. Denies injuries from another. Nutritional screening: Has had N/V for 3 or more days. Tuberculosis screening: No symptoms or risk factors identified. Assessment: 19:54 General: Appears uncomfortable, well groomed, well developed, well nourished, Behavior kl is calm, cooperative. Pain: Complains of pain in abdomen Pain currently is 8 out of 10 on a pain scale. Neuro: No deficits noted. Cardiovascular: No deficits noted. Respiratory: No deficits noted. GI: Bowel sounds present X 4 quads. Abd is soft Abdomen is tender to palpation X 4 quads. 22:16 General: Appears in no apparent distress. comfortable, Behavior is calm, cooperative. aa9 Respiratory: Airway is patent Respiratory effort is even, unlabored. 23:19 Reassessment: Patient appears in no apparent distress at this time. Patient and/or aa9 family updated on plan of care and expected duration. Pain level reassessed. Patient is alert, oriented x 3, equal unlabored respirations, skin warm/dry/pink. Patient denies pain at this time. Patient states feeling better. Vital Signs: 18:49 BP 143 / 71; Pulse 107; Resp 16; Temp 98.1; Pulse Ox 99% on R/A; Weight 77.11 kg; hb Height 5 ft. 3 in. (160.02 cm); Pain 9/10; 19:55 BP 142 / 78; Pulse 97; Resp 15; Pulse Ox 100% on R/A; kl 18:49 Body Mass Index 30.11 (77.11 kg, 160.02 cm) hb ED Course: 18:46 Patient arrived in ED. rg4 18:47 Tracy Lisa FNP-C is [facility]. kb 18:47 Sen Combs MD is Attending Physician. kb 18:51 Triage completed. hb 18:52 Arm band placed on. hb 19:06 Urine Microscopic Only Sent. hb 19:42 Inserted saline lock: 20 gauge in left antecubital area, using aseptic technique. Blood ls5 collected. 20:45 CT Abd/Pelvis - IV Contrast Only In Process Unspecified. EDMS 22:27 Patient has correct armband on for positive identification. Placed in gown. Bed in low aa9 position. Call light in reach. Side rails up X2. Adult w/ patient. 22:27 No provider procedures requiring assistance completed. aa9 23:19 IV discontinued, intact, bleeding controlled, No redness/swelling at site. Pressure aa9 dressing applied. Administered Medications: 19:54 Drug: NS 0.9% 1000 ml Route: IV; Rate: 1 bolus; Site: left antecubital; kl 22:27 Follow up: Response: No adverse reaction; IV Status: Completed infusion; IV Intake: aa9 1000ml 19:54 Drug: TORadol - (ketorolac) 15 mg Route: IVP; Site: left antecubital; kl 22:26 Follow up: Response: No adverse reaction aa9 19:54 Drug: Zofran (Ondansetron) 4 mg Route: IVP; Site: left antecubital; kl 21:27 Follow up: Response: No adverse reaction; Marked relief of symptoms kl 21:27 Follow up: Response: No adverse reaction; Marked relief of symptoms kl 21:27 Drug: Rocephin (cefTRIAXone) 1 grams Route: IV; Rate: calculated rate; Site: left kl antecubital; 22:16 Follow up: Response: No adverse reaction; IV Status: Completed infusion; IV Intake: aa9 100ml Medication: 22:27 VIS not applicable for this client. aa9 Intake: 22:16 IV: 100ml; Total: 100ml. aa9 22:27 IV: 1000ml; Total: 1100ml. aa9 Outcome: 23:10 Discharge ordered by . kb 23:19 Discharged to home ambulatory, with family. aa9 23:19 Condition: stable 23:19 Discharge instructions given to patient, Instructed on discharge instructions, follow up and referral plans. medication usage, Demonstrated understanding of instructions, follow-up care, medications, Prescriptions given X 2. 23:19 Patient left the ED. aa9 Signatures: Dispatcher [employer] EDTracy Montana, KATERIN MARSHALLP-Kamla Ahuja RN RN kl Baxter, Heather, RN RN hb Garcia, Rubi rg4 Daylin Gomez RN RN aaScottie Patel ls5 Corrections: (The following items were deleted from the chart) 19:42 19:32 Inserted saline lock: 20 gauge in right antecubital area, using aseptic ls5 technique. Blood collected. ls5
--- NOTE | 2022-09-24 23:11 | EDPHYS ---
Physician Documentation [facility] Name: Clarissa Marie Age: 41 yrs Sex: Female : 1980 Arrival Date: 09/24/2022 Time: 18:46 Bed 12 Private MD: ED Physician Sen Combs HPI: 09/25 00:29 This 41 yrs old Female presents to ER via Ambulatory with complaints of kb Abdominal Pain, Back Pain, Nausea, Blood In Urine. 00:29 The patient presents with abdominal pain in the lower abdomen. The symptoms do not kb radiate. The patient has not experienced similar symptoms in the past. The patient has not recently seen a physician. 00:29 Onset: The symptoms/episode began/occurred yesterday. Associated signs and symptoms: kb Pertinent positives: nausea, vomiting, and diarrhea, dysuria, hematuria. The symptoms are described as constant. Modifying factors: The symptoms are alleviated by nothing, the symptoms are aggravated by pressure. Severity of pain: At its worst the pain was moderate in the emergency department the pain is unchanged. Pt reports n/v/d and abd/flank pain for a few days. Dysuria and hematuria started today. Historical: - Allergies: 09/24 18:51 PENICILLINS (Anaphylaxis); hb - PMHx: 18:51 Diabetes - IDDM; High Cholesterol; Hypothyroidism; hb - Immunization history:: Adult Immunizations up to date. - Social history:: Smoking status: Patient denies any tobacco usage or history of. ROS: 09/25 00:28 Respiratory: Negative for shortness of breath, cough, wheezing, and pleuritic chest kb pain. Constitutional: Positive for chills, malaise. Abdomen/GI: Positive for abdominal pain, nausea, vomiting, and diarrhea. Back: Positive for flank pain, bilaterally. All other systems are negative. Exam: 00:28 Constitutional: This is a well developed, well nourished patient who is awake, alert, kb and in no acute distress. Head/Face: Normocephalic, atraumatic. ENT: Moist Mucous membranes Cardiovascular: Regular rate and rhythm with a normal S1 and S2. No gallops, murmurs, or rubs. No pulse deficits. Respiratory: Respirations even and unlabored. No increased work of breathing. Talking in full sentences Skin: Warm, dry with normal turgor. Normal color. MS/ Extremity: Pulses equal, no cyanosis. Neurovascular intact. Full, normal range of motion. Neuro: Awake and alert, GCS 15, oriented to person, place, time, and situation. Moves all extremities. Normal gait. 00:28 Abdomen/GI: Inspection: abdomen appears normal, Bowel sounds: normal, Palpation: soft, in all quadrants, mild abdominal tenderness, in the left lower quadrant, moderate abdominal tenderness, in the right lower quadrant. 00:28 Back: CVA tenderness, that is moderate, is noted bilaterally. Vital Signs: 09/24 18:49 BP 143 / 71; Pulse 107; Resp 16; Temp 98.1; Pulse Ox 99% on R/A; Weight 77.11 kg; hb Height 5 ft. 3 in. (160.02 cm); Pain 9/10; 19:55 BP 142 / 78; Pulse 97; Resp 15; Pulse Ox 100% on R/A; kl 18:49 Body Mass Index 30.11 (77.11 kg, 160.02 cm) hb MDM: 18:50 Patient medically screened. kb 09/25 00:27 Differential diagnosis: appendicitis, Pyelonephritis, Ureterolithiasis, urinary tract kb infection. Data reviewed: vital signs, nurses notes. Consideration of Admission/Observation Escalation of care including admission/observation considered. Counseling: I had a detailed discussion with the patient and/or guardian regarding: the historical points, exam findings, and any diagnostic results supporting the discharge/admit diagnosis, lab results, radiology results, the need for outpatient follow up, a family practitioner, to return to the emergency department if symptoms worsen or persist or if there are any questions or concerns that arise at home. ED course: Pt tolerating po intake. Agrees with outpatient antibiotics and will return for worsening of condition or inability to tolerate medications. 09/24 18:53 Order name: CBC with Diff; Complete Time: 20:29 kb 09/24 18:53 Order name: CMP; Complete Time: 20:29 kb 09/24 18:53 Order name: Lipase; Complete Time: 20:29 kb 09/24 18:53 Order name: Urine Microscopic Only; Complete Time: 19:45 kb 09/24 19:03 Order name: Urine Dipstick-Ancillary; Complete Time: 19:45 EDMS 09/24 19:11 Order name: Urine --Ancillary (enter results); Complete Time: 22:25 wm 09/24 18:53 Order name: CT Abd/Pelvis - IV Contrast Only; Complete Time: 21:04 kb 09/24 18:53 Order name: IV Saline Lock; Complete Time: 19:32 kb 09/24 18:53 Order name: Labs collected and sent; Complete Time: 19:32 kb 09/24 19:24 Order name: Urine Culture EDMS 09/24 18:53 Order name: Urine Dipstick-Ancillary (obtain specimen); Complete Time: 18:57 kb 09/24 18:53 Order name: Urine Test (obtain specimen); Complete Time: 18:57 kb Administered Medications: 09/24 19:54 Drug: NS 0.9% 1000 ml Route: IV; Rate: 1 bolus; Site: left antecubital; kl 22:27 Follow up: Response: No adverse reaction; IV Status: Completed infusion; IV Intake: aa9 1000ml 19:54 Drug: TORadol - (ketorolac) 15 mg Route: IVP; Site: left antecubital; kl 22:26 Follow up: Response: No adverse reaction aa9 19:54 Drug: Zofran (Ondansetron) 4 mg Route: IVP; Site: left antecubital; kl 21:27 Follow up: Response: No adverse reaction; Marked relief of symptoms kl 21:27 Follow up: Response: No adverse reaction; Marked relief of symptoms kl 21:27 Drug: Rocephin (cefTRIAXone) 1 grams Route: IV; Rate: calculated rate; Site: left kl antecubital; 22:16 Follow up: Response: No adverse reaction; IV Status: Completed infusion; IV Intake: aa9 100ml Disposition Summary: 09/24/22 23:10 Discharge Ordered Location: Home kb Condition: Stable kb Diagnosis - Acute cystitis with hematuria kb Followup: kb - With: Emergency Department - When: As needed - Reason: Worsening of condition Followup: kb - With: Private Physician - When: 2 - 3 days - Reason: Recheck today's complaints, Continuance of care, Re-evaluation by your physician Discharge Instructions: - Discharge Summary Sheet kb - Urinary Tract Infection, Adult, [id number] kb Forms: - Medication Reconciliation Form kb - Thank You Letter kb - Antibiotic Education kb - Prescription Opioid Use kb Prescriptions: - cefpodoxime 100 mg Oral Tablet - take 1 tablet by ORAL route every 12 hours for 10 days take with food; 20 kb tablet; Refills: 0, Product Selection Permitted - ondansetron 4 mg Oral - take 1 tablet by SUBLINGUAL route every 8 hours As needed; 15 tablet; Refills: kb 0, Product Selection Permitted Signatures: Dispatcher [employer] Tracy Cook, Kamla Hoyt RN RN kl Baxter, Heather, RN RN hb Avalos, Aylin RN aa9
[2022-09-24 23:51] VITALS: TEMP 98.1
[2022-09-24 23:52] VITALS: BP 142/78; O2SAT 100
== END 2022-09-24 23:19 | disposition home or self-care (01) ==
LOC: ER 18:42
DX: N30.01 Acute cystitis with hematuria (principal); Z88.0 Allergy status to penicillin
CPT/HCPCS: 36415; 74177; 80053; 81003; 81015; 81025; 83690; 85025; 87077; 87086; 87088; 87186; 96361; 96365; 96375; 99284; J2405; J7030; Q9967